=== PATIENT | female | born 1945 | race Caucasian/White ===

== ENCOUNTER 2020-02-24 05:31 | Inpatient (IN) ==
[2020-02-24] MEDS ORDERED: VANCOMYCIN 1,000 MG VIAL ONE (05:59)
[2020-02-24] MEDS ORDERED: CLINDAMYCIN INJ 50 ML IV ONE ×2 (05:59→14:11)
[2020-02-24] MEDS ORDERED: VANCOMYCIN INJ 1,000 MG in SODIUM CHLORIDE 0.9% 250 ML IV ONE (06:00)
[2020-02-24] MEDS ORDERED: CLINDAMYCIN INJ 900 MG in PREMIX 1 EACH IV ONE (07:00)
[2020-02-24] MEDS: LACTATED RINGERS 1,000 ML IV SCH (08:00)
[2020-02-24] MEDS ORDERED: PROMETHAZINE 25 MG/1 ML VIAL IM PRN (10:22)
[2020-02-24] MEDS ORDERED: ONDANSETRON 4 MG/2 ML VIAL IV PRN ×2 (10:22→14:36)
[2020-02-24] MEDS ORDERED: MAGNESIUM HYDROXIDE SUSP 30 ML UDCUP PO PRN (10:22)
[2020-02-24] MEDS ORDERED: LACTULOSE 20 GM/30 ML UDCUP PO PRN (10:22)
[2020-02-24] MEDS ORDERED: MORPHINE 4 MG/1 ML VIAL IV PRN ×2 (10:22→10:31)
[2020-02-24] MEDS ORDERED: BISACODYL 10 MG SUPP RECTAL PRN (10:22)
[2020-02-24] MEDS ORDERED: GLUCAGON 1 MG VIAL IM PRN (10:26)
[2020-02-24] MEDS ORDERED: DEXTROSE 50% 25 GM/50 ML VIAL IV PRN (10:26)
[2020-02-24] MEDS ORDERED: TRANEXAMIC ACID 1,000 MG/10 ML VIAL ONE (11:01)
[2020-02-24] MEDS ORDERED: propofoL 200 MG/20 ML VIAL IV ONE (12:15)
[2020-02-24] MEDS ORDERED: LIDOCAINE 2% 5 ML VIAL ONE (12:15)
[2020-02-24] MEDS ORDERED: fentaNYL 100 MCG/2 ML VIAL ONE (12:15)
[2020-02-24] MEDS ORDERED: MIDAZOLAM 2 MG/2 ML VIAL ONE (12:15)
[2020-02-24] MEDS ORDERED: ROPIVACAINE 0.5% 30 ML VIAL ONE (12:15)
[2020-02-24] MEDS ORDERED: SODIUM CHLORIDE 0.9% 200 ML IV ONE (12:16)
[2020-02-24] MEDS ORDERED: BUPIVACAINE SPINAL 0.75% 2 ML AMP SPINAL ONE (12:16)
[2020-02-24] MEDS ORDERED: DEXAMETHASONE 4 MG/1 ML VIAL ONE (12:16)
[2020-02-24] MEDS ORDERED: LACTATED RINGERS 1,000 ML IV ONE (12:16)
[2020-02-24] MEDS ORDERED: ePHEDrine 50 MG/ML VIAL ONE (12:16)
[2020-02-24] MEDS ORDERED: PHENYLEPHRINE 1 MG/10 ML SYRINGE IV ONE (12:16)
[2020-02-24] MEDS: CLINDAMYCIN INJ 900 MG in PREMIX 1 EACH IV SCH ×2 (14:13→21:00)
[2020-02-24] MEDS ORDERED: MEPERIDINE 25 MG/1 ML VIAL IV PRN (14:36)
[2020-02-24] MEDS: INSULIN REGULAR 100 UNIT/ML SUBCUT SCH ×3 (15:55→20:58)
[2020-02-24 16:58] LABS: Basophils % 0.1 % (0.0-0.8); Eosinophils % 0.1 % (0.00-10.9); Hematocrit 39.9 VOL% (35.7-47.0); Hemoglobin 12.9 GM/DL (12.0-16.0); Immature Granulocytes % 0.8 %; Immature Granulocytes Absolute 0.11 #; Lymphocytes # 0.7 10*3/uL (1.4-4.0); Lymphocytes % 4.9 % (21.3-54.2); Mean Corpuscular HGB Conc 32.3 GM/DL (32-36); Mean Corpuscular Volume 91.7 FL (87-102); Mean Platelet Volume 10.4 FL (9.6-12.0); Monocytes % 1.4 % (1.7-12.7); Neutrophils % 92.7 % (38.7-73.9); Platelet Count 212 T/CUMM (130-400); Red Blood Count 4.35 MC/CUMM (3.8-5.5); White Blood Count 13.4 T/CUMM (4-12)
[2020-02-24 17:03] LABS: Osmolality,Calculated 280.5 MOS/KG (273-304)
[2020-02-24 20:55] LABS: Band Neutrophils 3 % (0-10); Lymphocytes 6 % (20-55); Platelet Estimate Normal; Segmented Neutrophils 90 % (50-85); Total Cells Counted 100
[2020-02-24] MEDS: metFORMIN 500 MG TABLET PO SCH (20:56)
[2020-02-24] MEDS: amLODIPine 10 MG TABLET PO SCH (20:57)
[2020-02-24] MEDS: LOSARTAN 50 MG TABLET PO SCH (20:57)
[2020-02-24] MEDS: SIMVASTATIN 10 MG TABLET PO SCH (20:57)
[2020-02-24] MEDS: atenoloL 50 MG TABLET PO SCH (20:57)
[2020-02-24] MEDS: DOCUSATE SODIUM 100 MG CAPSULE PO SCH (20:57)
[2020-02-24] MEDS: FONDAPARINUX 2.5 MG/0.5 ML SYRINGE SUBCUT SCH (20:58)
[2020-02-24] MEDS: CELECOXIB 100 MG CAPSULE PO SCH (20:58)
[2020-02-25 05:37] LABS: Basophils % 0.1 % (0.0-0.8); Hematocrit 36.5 VOL% (35.7-47.0); Hemoglobin 11.9 GM/DL (12.0-16.0); Immature Granulocytes % 0.8 %; Immature Granulocytes Absolute 0.11 #; Lymphocytes # 0.8 10*3/uL (1.4-4.0); Lymphocytes % 5.6 % (21.3-54.2); Mean Corpuscular HGB Conc 32.6 GM/DL (32-36); Mean Corpuscular Volume 89.7 FL (87-102); Mean Platelet Volume 10.8 FL (9.6-12.0); Monocytes % 6.9 % (1.7-12.7); Neutrophils % 86.6 % (38.7-73.9); Platelet Count 212 T/CUMM (130-400); Red Blood Count 4.07 MC/CUMM (3.8-5.5); White Blood Count 13.7 T/CUMM (4-12)
[2020-02-25 06:01] LABS: Calcium 9.2 MG/DL (8.5-10.1); Osmolality,Calculated 279.7 MOS/KG (273-304)
[2020-02-25] MEDS: DOCUSATE SODIUM 100 MG CAPSULE PO SCH ×2 (08:35→21:27)
[2020-02-25] MEDS: metFORMIN 500 MG TABLET PO SCH ×2 (08:35→21:27)
[2020-02-25] MEDS: INSULIN REGULAR 100 UNIT/ML SUBCUT SCH ×4 (08:36→22:24)
[2020-02-25] MEDS: LACTATED RINGERS 1,000 ML IV SCH (13:27)
[2020-02-25] MEDS: FONDAPARINUX 2.5 MG/0.5 ML SYRINGE SUBCUT SCH (21:26)
[2020-02-25] MEDS: SIMVASTATIN 10 MG TABLET PO SCH (21:26)
[2020-02-25] MEDS: atenoloL 50 MG TABLET PO SCH (21:27)
[2020-02-25] MEDS: LOSARTAN 50 MG TABLET PO SCH (21:27)
[2020-02-25] MEDS: amLODIPine 10 MG TABLET PO SCH (21:27)
[2020-02-25] MEDS: CELECOXIB 100 MG CAPSULE PO SCH (21:27)
[2020-02-26] MEDS: DOCUSATE SODIUM 100 MG CAPSULE PO SCH ×2 (08:29→21:32)
[2020-02-26] MEDS: metFORMIN 500 MG TABLET PO SCH ×2 (08:29→21:32)
[2020-02-26] MEDS: INSULIN REGULAR 100 UNIT/ML SUBCUT SCH ×4 (08:29→21:33)
[2020-02-26] MEDS: FONDAPARINUX 2.5 MG/0.5 ML SYRINGE SUBCUT SCH (21:31)
[2020-02-26] MEDS: CELECOXIB 100 MG CAPSULE PO SCH (21:32)
[2020-02-26] MEDS: LOSARTAN 50 MG TABLET PO SCH (21:32)
[2020-02-26] MEDS: SIMVASTATIN 10 MG TABLET PO SCH (21:32)
[2020-02-26] MEDS: amLODIPine 10 MG TABLET PO SCH (21:32)
[2020-02-26] MEDS: atenoloL 50 MG TABLET PO SCH (21:32)
[2020-02-27] MEDS: INSULIN REGULAR 100 UNIT/ML SUBCUT SCH ×2 (08:41→11:21)
[2020-02-27] MEDS: metFORMIN 500 MG TABLET PO SCH (09:38)
[2020-02-27] MEDS: DOCUSATE SODIUM 100 MG CAPSULE PO SCH (09:38)
[2020-02-27 11:09] VITALS: BP 103/53
== END 2020-02-27 15:00 | disposition home health service (06) | DRG 470 ==
LOC: N.OR 05:31 → N.SDSINP 05:32 → N.3E 15:47
PROVIDERS: ADMIT Orthopaedic Surgery; ATTEND Orthopaedic Surgery

== ENCOUNTER 2022-01-19 13:06 | Observation (INO) ==
[2022-01-19] MEDS ORDERED: DEXAMETHASONE 4 MG/1 ML VIAL IV STA (18:04)
[2022-01-19] MEDS ORDERED: SODIUM CHLORIDE 0.9% 1,000 ML IV STA (18:04)
[2022-01-19] MEDS ORDERED: DEXAMETHASONE 4 MG/1 ML VIAL ONE (18:05)
[2022-01-19 18:55] LABS: Basophils % 0.3 % (0.0-0.8); Hemoglobin 13.4 GM/DL (12.0-16.0); Immature Granulocytes % 0.4 %; Immature Granulocytes Absolute 0.03 #; Mean Corpuscular HGB Conc 31.9 GM/DL (32-36); Mean Corpuscular Volume 91.1 FL (87-102); Mean Platelet Volume 10.7 FL (9.6-12.0); Monocytes # 1.1 10*3/uL (0.11-0.8); Neutrophils % 71.3 % (38.7-73.9); Platelet Count 198 T/CUMM (130-400); Red Blood Count 4.61 MC/CUMM (3.8-5.5); Red Cell Distribution Width 13.4 % (9.3-17.3); White Blood Count 7.5 T/CUMM (4-12)
[2022-01-19 19:34] LABS: Calcium 9.2 MG/DL (8.5-10.1); Osmolality,Calculated 278.7 MOS/KG (273-304)
[2022-01-19] MEDS ORDERED: GLUCAGON 1 MG VIAL IM PRN (20:43)
[2022-01-19] MEDS ORDERED: ONDANSETRON 4 MG/2 ML VIAL IV PRN (20:43)
[2022-01-19] MEDS ORDERED: ACETAMINOPHEN 325 MG TABLET PO PRN (20:43)
[2022-01-19] MEDS ORDERED: SODIUM CHLORIDE 0.9% 1,000 ML IV SCH (21:00)
[2022-01-19] MEDS ORDERED: ENOXAPARIN 40 MG/0.4 ML SYRINGE SUBCUT SCH (21:00)
[2022-01-19] MEDS ORDERED: DEXTROSE 10% 250 ML BAG IV PRN (21:00)
[2022-01-19] MEDS: FAMOTIDINE 20 MG TABLET PO SCH (22:00)
[2022-01-19] MEDS ORDERED: amLODIPine 10 MG TABLET PO SCH (22:00)
[2022-01-19] MEDS ORDERED: SIMVASTATIN 10 MG TABLET PO SCH (22:00)
[2022-01-19] MEDS: guaiFENesin/DM ER 600-30 MG TABLET PO SCH (22:00)
[2022-01-19] MEDS ORDERED: atenoloL 50 MG TABLET PO SCH (22:00)
[2022-01-19] MEDS: ASCORBIC ACID 500 MG TABLET PO SCH (22:00)
[2022-01-19] MEDS: INSULIN REGULAR 100 UNIT/ML SUBCUT SCH (22:40)
[2022-01-20 05:35] LABS: Hematocrit 38.3 VOL% (35.7-47.0); Hemoglobin 12.4 GM/DL (12.0-16.0); Immature Granulocytes % 0.2 %; Immature Granulocytes Absolute 0.01 #; Lymphocytes # 0.5 10*3/uL (1.4-4.0); Lymphocytes % 12.5 % (21.3-54.2); Mean Corpuscular HGB Conc 32.4 GM/DL (32-36); Mean Corpuscular Volume 91.4 FL (87-102); Mean Platelet Volume 10.3 FL (9.6-12.0); Monocytes # 0.4 10*3/uL (0.11-0.8); Monocytes % 8.3 % (1.7-12.7); Platelet Count 170 T/CUMM (130-400); Red Blood Count 4.19 MC/CUMM (3.8-5.5); Red Cell Distribution Width 13.1 % (9.3-17.3); White Blood Count 4.2 T/CUMM (4-12)
[2022-01-20 05:48] LABS: INR 0.9; PT Patient Result 9.9 SECS (10.1-12.1)
[2022-01-20 06:11] LABS: Ferritin 406.5 ng/mL (8-252); Osmolality,Calculated 288.5 MOS/KG (273-304); Potassium 4.4 MMOL/L (3.5-5.1)
[2022-01-20 07:35] VITALS: BP 130/75
[2022-01-20] MEDS ORDERED: AZITHROMYCIN 250 MG TABLET PO SCH (09:00)
[2022-01-20] MEDS ORDERED: DEXAMETHASONE 4 MG/1 ML VIAL IV SCH (09:00)
[2022-01-20] MEDS ORDERED: CHOLECALCIFEROL 1,000 UNIT TABLET PO SCH (09:00)
[2022-01-20] MEDS ORDERED: IVERMECTIN 3 MG TABLET PO SCH (09:00)
[2022-01-20] MEDS ORDERED: ZINC GLUCONATE 50 MG TABLET PO SCH (09:00)
[2022-01-20] MEDS: ASCORBIC ACID 500 MG TABLET PO SCH (09:29)
[2022-01-20] MEDS: guaiFENesin/DM ER 600-30 MG TABLET PO SCH (09:30)
[2022-01-20] MEDS: FAMOTIDINE 20 MG TABLET PO SCH (09:30)
[2022-01-20] MEDS: INSULIN REGULAR 100 UNIT/ML SUBCUT SCH (09:47)
== END 2022-01-20 10:30 | disposition home or self-care (01) ==
LOC: N.ED 13:06 → N.EDINP 13:06 → N.3E 01-20 00:28
PROVIDERS: ADMIT Internal Medicine; ATTEND Internal Medicine